=== PATIENT | female | born 1965 | race Hispanic/Latino ===

== ENCOUNTER → 2018-03-22 | Day surgery (SDC) | payer BC ==
[~2018-03-22] MED LIST: BUPIVACAINE 0.5%/EPI 30 ML SDV INJ ONE; CEFAZOLIN SOD 2 GM/D5W 50ML 50 ML IV ONE; DEXAMETHASONE SOD PHOS INJ 4 MG/ML VIAL ONE; FENTANYL CITRATE/PF 100MCG/2 ML INJ ONE; IBUPROFEN400 MG PO; LIDOCAINE HCL 2% LOCAL INJ 5 ML SDV VIAL INJ ONE; MIDAZOLAM HCL 2 MG/2 ML VIAL ONE; NAPROXEN250 MG PO; ONDANSETRON HCL INJ 2 MG/ML VIAL ONE; PROPOFOL IV EMULSION 10 MG/ML 20 ML VIAL ONE; SEVOFLURANE INHAL SOLN 250 ML PEN BTL ONE
--- NOTE | 2018-03-27 14:29 | Operative Report ---
DATE OF PROCEDURE: March 22, 2018 PREOPERATIVE DIAGNOSES 1. Right knee medial meniscus tear. 2. Right knee degenerative joint disease of the knee. POSTOPERATIVE DIAGNOSES 1. Right knee medial meniscus tear. 2. Right knee degenerative joint disease of the knee. OPERATIONS/PROCEDURES PERFORMED 1. Patient underwent right knee examination under anesthesia. 2. Right knee arthroscopy. 3. Right knee partial medial meniscectomy. 4. Right knee chondroplasty of the patella, the trochlea, the medial femoral condyle, medial tibial plateau, lateral femoral condyle, and lateral tibial plateau. [place]: None. ANESTHESIA: General endotracheal intubation anesthesia. INTRAVENOUS FLUIDS: Per the anesthesia record. BRIEF DESCRIPTION OF PATIENT'S OPERATIVE PROCEDURE: Ms. Blancas was taken to the operating room and placed in the supine position on the operating table. Following induction of general anesthesia as well as endotracheal intubation, the patient's right upper extremity was examined under anesthesia. She was found to have a mild effusion within the knee joint, but otherwise ligamentously stable knee. The patient's lower extremity was prepped and draped in standard surgical fashion. A 2-portal technique was used to provide this patient arthroscopic evaluation of the knee joint. Examination of the suprapatellar pouch, medial and lateral gutters found no evidence of loose bodies. There was, however, evidence of chondromalacia of the patellar and trochlear surfaces. Scope was advanced in the medial compartment. Examination of the medial compartment demonstrated a torn medial meniscus. There was also chondromalacia of the articulating surfaces. A combination of biting forceps and a motorized shaver was used to resect the torn portion of the meniscus. Chondroplasties of the medial femoral condyle and medial tibial plateau were performed at this time. Scope was then advanced into the intercondylar notch. Anterior cruciate ligament was identified and found to be intact. The scope was advanced into the lateral compartment. Examination of the lateral compartment demonstrated chondromalacia of the articulating surfaces. A chondroplasty of each surface was performed. The scope was then advanced into the suprapatellar pouch and chondroplasties of the patella and trochlea were performed. The knee was then deflated of its sterile normal saline. The portal sites were closed using 4-0 nylon suture. The portal sites as well as the knee itself were injected with 0.5% Marcaine with epinephrine. Sterile dressings were applied. The patient was awakened and taken to postanesthesia care unit in stable condition. Job#: [id number] FREDO
== END | disposition home or self-care (01) ==
LOC: OR 10:14
PROVIDERS: ATTEND Specialist
DX: S83.261A Peripheral tear of lateral meniscus, current injury, right knee, initial encounter (principal); M17.11 Unilateral primary osteoarthritis, right knee; M22.41 Chondromalacia patellae, right knee; F17.210 Nicotine dependence, cigarettes, uncomplicated; X58.XXXA Exposure to other specified factors, initial encounter; Z01.810 Encounter for preprocedural cardiovascular examination; Z68.42 Body mass index [BMI] 45.0-49.9, adult
CPT/HCPCS: 29881; 81025; 93005; J1100; J2001; J2250; J2405